=== PATIENT | female | born 1975 | race Caucasian/White ===

== ENCOUNTER 2016-08-15 15:51 | Emergency (ER) | payer SELFPAY ==
[2016-08-15 15:55] VITALS: BP 143/102; BMI 22.3
--- NOTE | 2016-08-15 16:55 | DR.GENAD ---
HPI - PCP Primary Care Physician: DR. MCDUFFIE - HPI Comment HPI Comment: HISTORY BELOW. - Complaint/Symptoms Chief Complaint Doctors Comments: RECENT HEAD TRAUMA WITH MILD BLEED. NAUSEA TODAY AND VOMITED. HAVING HEADACHE AND OUT OF FIORICET. NO DIARRHEA OR ABDOMINAL PAIN. Chief Complaint:: PATIENT STATED THAT SHE WAS SICK THROWING UP ALL DAY. PATIENT STATED THAT SHE HAD HEAD TRAUMA A COUPLE WEEKS AGO. PATIENT STATED THAT SHE FINISHED UP ALL HER FIORCET. - Nurses notes reviewed Nurses Notes Review: Yes - Source History Provided: Patient - Mode of Arrival Mode of Arrival: Ambulatory - Timing Onset of Chief Complaint: 08/15/16 Came on: Suddenly - Duration Duration: Constant Duration: Days - Severity Severity: Moderate PMH - PMH Past Medical History: Yes Past Medical History: Anxiety, Depression Past Surgical History: Yes Surgical History: Hysterectomy - Family History History of Family Medical Conditions: Yes Family Medical History: Cancer - Social History Does patient currently use any type of tobacco product: Yes Have you used tobacco products in the last 12 months: Yes Type of Tobacco Use: Cigarettes Does any household member use tobacco: No Alcohol Use: Occasionally Do you use any recreational Drugs:: No Lives With: Family - infectious screening In the last 2 months have you had wt loss of >10#?: NO Have you had fever, night sweats or hemotysis?: No Have you traveled outside the country in the last 6 months?: No Isolation: Standard ROS - Review of Systems Constitutional: No Symptoms Reported Eyes: Other (LT PERIORBITAL SWELLING. LT EYE SUB CONJUNCTIVA HEMATOMA. LT FOREHEAD HEMATOMA ABOVE LT EYE.). negative: Blurred Vision, Photophobia ENTM: No Symptoms Reported. negative: Ear Pain, Nose Discharge, Nose Congestion , Throat Pain Respiratoy: No Symptoms Reported Cardiovascular: No Symptoms Reported Gastrointestinal/Abdominal: Nausea, Vomiting Genitourinary: No Symptoms Reported Neurological: Headache Musculoskeletal: No Symptoms Reported Integumentary: No Symptoms Reported Hematologic/Lymphatic: No Symptoms Reported Endocrine: No Symptoms Reported All Other Systems: Reviewed and Negative PE - Vital Signs Vitals: Pulse Rate 82 Respiratory Rate 18 Blood Pressure [Right Arm] 143/83 Blood Pressure 143/102 O2 Sat by Pulse Oximetry 100 - General Limitations: No Limitations General Appearance: Alert - Head Head Exam: Other (LET FOREHEAD HEMATOMA.) - Eyes Eye exam: Normal Appearance, Periorbital Swelling, Periorbital Tenderness, Other (LT SUB CONJUNCTIVA HEMATOMA.) - ENT ENT Exam: Normal External Ear Exam External Ear Exam: Normal External Inspection TM/Canal Exam: Bilateral Normal Nose Exam: Normal Nose Exam Mouth Exam: Normal Inspection Throat Exam: Normal Inspection - Neck Neck Exam: Trachea Midline. negative: Tenderness, Meningismus, Lymphadenopathy - Chest Chest Inspection: Symmetric Chest Wall Rise - Respiratory Respiratory Exam: Normal Lung Sounds Bilat Respiratory Exam: Bilateral Clear to Auscultation - Cardiovascular Cardiovascular Exam: Regular Rate, Normal Rhythm, Normal Heart Sounds - Abdominal Exam Abdominal Exam: Normal Bowel Sounds, Soft. negative: Tenderness - Extremities Extremities Exam: Normal Inspection - Back Back Exam: Normal Inspection - Neurologic Neurological Exam: Alert, Oriented X3 - Psychiatric Psychiatric Exam: Anxious - Skin Skin Exam: Erythema MDM - Additional Information Additional Information Obtained From: Family - Differential Diagnosis Differential Diagnosis: RECENT HEAD TRAUMA, HEADACHE, LT FACE HEMATOMA, LT SUBCONJUNCTIVA HEMATOMA Course - Treatment Treatment: SEE ORDERS. - Education/Counseling Education/Counseling: Patient, Family, Education Educated On: Treatment, Diagnosis, Needs for Follow Up ROR - Labs Reviewed Laboratory: Specimen Type Clean catch urine 08/15/16 17:01 Urine Color Yellow (YELLOW) 08/15/16 17:01 Urine Appearance Clear (CLEAR) 08/15/16 17:01 Urine pH 7.0 (5.0 - 8.0) 08/15/16 17:01 Ur Specific Dustin 1.010 (1.000-1.030) 08/15/16 17:01 Urine Protein Negative (NEGATIVE) 08/15/16 17:01 Urine Glucose (UA) Negative (NEGATIVE) 08/15/16 17:01 Urine Ketones Negative (NEGATIVE) 08/15/16 17:01 Urine Occult Blood Negative (NEGATIVE) 08/15/16 17:01 Urine Nitrite Negative (NEGATIVE) 08/15/16 17:01 Urine Bilirubin Negative (NEGATIVE) 08/15/16 17:01 Urine Urobilinogen Normal (NORMAL) 08/15/16 17:01 Ur Leukocyte Esterase Negative (NEGATIVE) 08/15/16 17:01 Urine RBC 0-1 /HPF (NEGATIVE) 08/15/16 17:01 Urine WBC 0-1 /HPF (NEGATIVE) 08/15/16 17:01 Ur Squamous Epith Cells Few /HPF (NEGATIVE) 08/15/16 17:01 Urine Bacteria Trace /HPF (NEGATIVE) 08/15/16 17:01 Ur Culture Indicated? No/not indicated 08/15/16 17:01 - XRAY XRAY Interpreted by: Radiologist XRAY Findings: REPORT DISCUSS WITH PATIENT. - Diagnosis Discharge Problem: Subconjunctival hemorrhage of left eye Headache Qualifiers: Headache type: post-traumatic Headache chronicity pattern: acute headache Intractability: intractable Qualified Code(s): G44.311 - Acute post-traumatic headache, intractable Traumatic hematoma of face Qualifiers: Encounter type: subsequent encounter Qualified Code(s): S00.83XD - Contusion of other part of head, subsequent encounter - Discharge Plan Disposition: HOME, SELF-CARE Condition: Stable Prescriptions: [id number] [Fioricet Tab] 1 - 2 tab PO Q6H PRN #40 tab PRN Reason: Migraine Headache Ondansetron HCl [Zofran Tab 4 mg] 4 mg PO Q8H PRN #15 tab PRN Reason: Nausea/Vomiting - Follow ups/Referrals Follow ups/Referrals: Herbert Mcduffie [Primary Care Provider] - 2 days - Instructions Instructions: Post-Concussion Syndrome, Hematoma, [id number] Additional Instructions: return to ed if worse.
[2016-08-15] MEDS ORDERED: DEMEROL INJ IM ONE (16:59)
[2016-08-15] MEDS ORDERED: ZOFRAN INJ 4 MG VIAL IM ONE (16:59)
[2016-08-15] MEDS ORDERED: ZOFRAN INJ 4 MG VIAL ONE (17:03)
[2016-08-15] MEDS ORDERED: DEMEROL INJ ONE (17:04)
[2016-08-15 17:14] LABS: BILIRUBIN,URINE NEGATIVE (NEGATIVE); BLOOD/HEMOGLOBIN,URINE NEGATIVE (NEGATIVE); GLUCOSE, URINE NEGATIVE (NEGATIVE); KETONES,URINE NEGATIVE (NEGATIVE); LEUKOCYTE ESTERASE ,URINE NEGATIVE (NEGATIVE); NITRITES,URINE NEGATIVE (NEGATIVE); PROTEIN,URINE NEGATIVE (NEGATIVE); UROBILINOGEN,URINE NORMAL (NORMAL)
[2016-08-15 17:21] LABS: APPEARANCE,URINE CLEAR (CLEAR); COLOR,URINE YELLOW (YELLOW); RBC,URINE 0-1 /HPF (NEGATIVE)
[2016-08-15 17:22] LABS: BACTERIA,URINE TRACE /HPF (NEGATIVE); SQUAMOUS EPITHELIAL CELL,UR FEW /HPF (NEGATIVE)
--- NOTE | 2016-08-15 17:41 | CT ---
CT HEAD WITHOUT CONTRAST CLINICAL HISTORY: 40-year-old female with headache and recent head trauma. COMPARISON: CT head August 04, 2016. TECHNIQUE: Multiple axial CT images were obtained from the skull base to the cranial vertex without the administration of contrast. FINDINGS: Subtle, trace remnant of parenchymal hemorrhage within the right posterior temporal lobe with mild c ontinued edema. Stable size of large left frontotemporal scalp hematoma. No evidence of new abnormal intra- or extra axial fluid collections, midline shift, or mass effect. Morales white differentiation is maintained. The ventricular system is normal in size and morphology. T he basal cisterns are normal in appearance. Frontal sinuses are non pneumatized. The remaining imaged paranasal sinuses, mastoid air cells, and tympanic cavities are clear. IMPRESSION: 1. Near-complete resolution of right posterior temporal parenchymal hemorrhage and surrounding edema . 2. Stable size of left frontotemporal scalp hematoma in evolution. 3. No new acute ischemic or hemorrhagic insult. Reported By:
== END 2016-08-15 18:37 | disposition home or self-care (01) ==
LOC: ER 15:59
DX: S00.83XD Contusion of other part of head, subsequent encounter (principal); R51 Headache; X58.XXXA Exposure to other specified factors, initial encounter; Y92.9 Unspecified place or not applicable
CPT/HCPCS: 70450; 81001; 96372; 99283; J2175; J2405